=== PATIENT | female | born 1955 | race Caucasian/White ===

== ENCOUNTER 2018-03-05 11:20 | Outpatient (CLI) | payer OTHER ==
[~2018-03-05 11:20] MED LIST: AVAPRO75 MG PO; CLARITIN-D 121 EACH PO; INTESTINEX1 CA1 PO; ZITHROMAX TRI-500 MG PO
== END 2018-03-05 11:24 | disposition home or self-care (01) ==
LOC: SONOGRAMA 11:20
DX: E04.1 Nontoxic single thyroid nodule (principal)

== ENCOUNTER 2023-06-17 14:48 | Emergency (ER) | payer OTHER ==
[~2023-06-17] VITALS: Ht 152.4 cm; Wt 90.7 kg
[2023-06-17] MEDS ORDERED: ANASTROZOLE1 MG (15:36)
[2023-06-17 20:51] LABS: HEMATOCRIT 40.6 % (36.0-45.00); HEMOGLOBIN 13.8 g/dL (12.0-15.00); MEAN CELL VOLUME 88.6 fL (80.00-100.00); MEAN CORPUSCULAR HGB CONC 33.9 g/dl (32.0-36.0); PLATELET COUNT 237 K/uL (150-450); RED BLOOD COUNT 4.58 M/uL (4.00-6.00); RED CELL DISTRIBUTION WIDTH 13.1 % (11.5-14.5)
== END 2023-06-17 21:34 | disposition home or self-care (01) ==
LOC: ER 14:49
PROVIDERS: Emergency Medicine
DX: J10.1 Influenza due to other identified influenza virus with other respiratory manifestations (principal); J03.80 Acute tonsillitis due to other specified organisms; H66.93 Otitis media, unspecified, bilateral; Z85.89 Personal history of malignant neoplasm of other organs and systems; Z20.822 Contact with and (suspected) exposure to COVID-19
CPT/HCPCS: 36415; 96372; 99284; J0696